=== PATIENT | male | born 1950 | race Caucasian/White ===

== ENCOUNTER 2019-08-26 02:32 | Inpatient (IN) | payer OTHER ==
--- NOTE | 2019-08-26 02:50 | PDOC ---
History of Present Illness - General Chief Complaint: Shortness of Breath Stated Complaint: HIGH BP,SOB Time Seen by Provider: 08/26/19 02:49 - History of Present Illness Initial Comments: HPI: 68yo M with PMH of hypertension and anxiety presenting with shortness of breath. Son and are at the bedside providing collateral history. Patient has been short of breath for the past two weeks. He reports dyspnea on exertion : usually able to walk in the park without difficulty, but lately has felt tired while doing this. About an hour prior to arrival, he layed down and experienced significant shortness of breath. Patient arrived to our ED satting in the 80s on room air and hypertensive. Patient is concerned that he unintentionally took more valsartan than he was supposed to (480mg instead of 320mg). Patient also notes that he took his usual diazepam for his anxiety. Nonsmoker. Denies history of asthma or COPD. No cough or leg swelling. Denies fever or chills. PCP: Dr. Cole ROS: Constitutional: no fever, no chills HEENT: no throat pain, no dysphagia Cardiovascular: no chest pain, no palpitations Respiratory: no cough, +shortness of breath Gastrointestinal: no abdominal pain, no nausea Genitourinary: no dysuria, no hematuria Musculoskeletal: no myalgia, no arthralgia Skin: no rash, no itching Neurologic: no headache, no weakness PE: General: Awake, alert, and fully oriented, anxious Head: No signs of trauma Eyes: EOMI, sclera anicteric ENT: Moist mucus membranes Neck: Normal ROM, supple Lungs: Lungs clear, Normal breath sounds Cardio: Regular rhythm, S1 and S2 present Abdomen: Soft, nontender. No guarding, no rebound, no masses Extremities: Normal range of motion, Distal pulses present SKIN: Warm, Dry, normal turgor Neurologic: Cranial nerves II through XII grossly intact. Normal speech ED Course/MDM: DDX including but not limited to ACS, PE, PNA, CHF, COPD/asthma Labs, EKG, CXR 08/26/19 02:50 EKG: rate 84, QTc 453, NSR Sat 90s at RA 08/26/19 05:15 CBC WBC 5.4 K/mm3 (4.0-10.0) 08/26/19 03:23 RBC 5.34 M/mm3 (4.00-5.60) 08/26/19 03:23 Hgb 16.3 GM/dL (11.7-16.9) 08/26/19 03:23 Hct 48.8 % (35.4-49) 08/26/19 03:23 MCV 91.5 fl (80-96) 08/26/19 03:23 MCH 30.5 pg (25.7-33.7) 08/26/19 03:23 MCHC 33.4 g/dl (32.0-35.9) 08/26/19 03:23 RDW 14.0 % (11.9-15.9) 08/26/19 03:23 Plt Count 166 K/MM3 (134-434) 08/26/19 03:23 MPV 10.4 fl (7.5-11.1) D 08/26/19 03:23 Absolute Neuts (auto) 3.2 K/mm3 (1.5-8.0) 08/26/19 03:23 Neutrophils % 58.9 % (42.8-82.8) 08/26/19 03:23 Lymphocytes % 29.8 % (8-40) D 08/26/19 03:23 Monocytes % 8.6 % (3.8-10.2) 08/26/19 03:23 Eosinophils % 2.1 % (0-4.5) 08/26/19 03:23 Basophils % 0.6 % (0-2.0) 08/26/19 03:23 Nucleated RBC % 0 % (0-0) 08/26/19 03:23 No leukocytosis CMP Sodium 138 mmol/L (136-145) 08/26/19 03:23 Potassium 3.7 mmol/L (3.5-5.1) 08/26/19 03:23 Chloride 105 mmol/L (98-107) 08/26/19 03:23 Carbon Dioxide 26 mmol/L (21-32) 08/26/19 03:23 Anion Gap 8 MMOL/L (8-16) 08/26/19 03:23 BUN 22.4 mg/dL (7-18) H 08/26/19 03:23 Creatinine 1.4 mg/dL (0.55-1.3) H 08/26/19 03:23 Est GFR (CKD-EPI)AfAm 60.25 08/26/19 03:23 Est GFR (CKD-EPI)NonAf 51.99 08/26/19 03:23 Random Glucose 133 mg/dL (74-106) H 08/26/19 03:23 Calcium 8.5 mg/dL (8.5-10.1) 08/26/19 03:23 Total Bilirubin 0.3 mg/dL (0.2-1) 08/26/19 03:23 AST 18 U/L (15-37) 08/26/19 03:23 ALT 22 U/L (13-61) 08/26/19 03:23 Alkaline Phosphatase 196 U/L (45-117) H 08/26/19 03:23 Creatine Kinase 179 U/L (26-308) 08/26/19 03:23 Creatine Kinase Index 1.2 % (0.0-5.0) 08/26/19 03:23 CK-MB (CK-2) 2.2 ng/mL (0.5-3.6) 08/26/19 03:23 Troponin I < 0.02 ng/ml (0.00-0.05) 08/26/19 03:23 B-Natriuretic Peptide 27.2 pg/ml (5-125) 08/26/19 03:23 Total Protein 7.4 g/dl (6.4-8.2) 08/26/19 03:23 Albumin 3.7 g/dl (3.4-5.0) 08/26/19 03:23 Electrolytes unremarkable Cr mildly elevated No transaminitis Normal BNP Tpn undetectable Decision made to obtain chest CTA to rule out PE Chest CTA as reported by imaging money position officer: "EXAM: CHEST CTA HISTORY: Shortness of breath and hypoxia COMPARISON: None. FINDINGS: Negative for pulmonary embolus. There is aneurysmal dilatation of the ascending thoracic aorta measuring up to 4.8 cm. There is no thoracic aortic dissection at this time. Cardiomegaly. Lungs are clear. No pulmonary infiltrates. No pleural effusions. Osseous structures are intact. Note made of some calcification and stranding along the periphery of the left kidney posterior medially. Uncertain etiology. Recommend follow-up." Plan for admission for hypoxia Ling's is leaving. she would like to leave her phone number: Lakeshia 08/26/19 06:[address] Cole's service; expecting a callback from Dr. Colin 08/26/19 07:23 Past History - Past Medical History Allergies/Adverse Reactions: Allergies Allergy/AdvReac Type Severity Reaction Status Date / Time No Known Allergies Allergy Verified 08/26/19 02:47 Home Medications: Ambulatory Orders Amlodipine Besylate 5 mg PO DAILY 08/26/19 Diazepam 10 mg PO DAILY 08/26/19 Valsartan 320 mg PO DAILY 08/26/19 COPD: No HTN: Yes - Surgical History Appendectomy: Yes - Immunization History Immunization Up to Date: Yes - Psycho Social/Smoking Cessation Hx Smoking History: Never smoked Hx Alcohol Use: No Drug/Substance Use Hx: No (past) Substance Use Type: Alcohol *Physical Exam - Vital Signs Last Vital Signs Temp Pulse Resp BP Pulse Ox 90 22 H 172/116 H 84 L 08/26/19 02:44 08/26/19 02:44 08/26/19 02:44 08/26/19 02:44 ED Treatment Course - LABORATORY CBC & Chemistry Diagram: 08/26/19 03:23 08/26/19 03:23 Discharge - Discharge Information Problems reviewed: Yes Clinical Impression/Diagnosis: Hypoxia, Shortness of breath Condition: Guarded - Admission Yes - Follow up/Referral Referrals: Mariajose Cole MD [Primary Care Provider] - - Patient Discharge Instructions - Post Discharge Activity
[2019-08-26 02:55] VITALS: BMI 32.4
--- NOTE | 2019-08-26 03:18 | PDOC ---
Attending Attestation - Resident Resident Name: Lisa Alicea - ED Attending Attestation I have performed the following: I have examined & evaluated the patient, The case was reviewed & discussed with the resident, I agree w/resident's findings & plan - HPI HPI: 08/26/19 05:15 see resident hpi - Physicial Exam PE: 08/26/19 05:15 agree with resident exam - Medical Decision Making 08/26/19 05:15 68-year-old male worsening shortness of breath becoming acutely worse this evening preventing sleep Patient is persistently hypoxic in the emergency department with normal EKG and troponin as well as BNP We will CTA chest to rule out pulmonary embolism and reevaluate
[2019-08-26 03:55] LABS: BASO % 0.6 % (0-2.0); EOS % 2.1 % (0-4.5); HEMATOCRIT 48.8 % (35.4-49); HEMOGLOBIN 16.3 GM/dL (11.7-16.9); LYMPH % 29.8 % (8-40); MCH 30.5 pg (25.7-33.7); MCHC 33.4 g/dl (32.0-35.9); MEAN CELL VOLUME 91.5 fl (80-96); MEAN PLT VOLUME 10.4 fl (7.5-11.1); MONO % 8.6 % (3.8-10.2); NEUT % 58.9 % (42.8-82.8); PLATELET COUNT 166 K/MM3 (134-434); RBC 5.34 M/mm3 (4.00-5.60); WHITE BLOOD COUNT 5.4 K/mm3 (4.0-10.0)
[2019-08-26 04:08] LABS: INR 1.05 (0.83-1.09); PROTHROMBIN TIME (PATIENT) 12.4 SEC (9.7-13.0)
[2019-08-26 04:19] LABS: ALBUMIN 3.7 g/dl (3.4-5.0); BILIRUBIN,TOTAL 0.3 mg/dL (0.2-1); BLOOD UREA NITROGEN 22.4 mg/dL (7-18); CALCIUM 8.5 mg/dL (8.5-10.1); CREATININE 1.4 mg/dL (0.55-1.3); N-TERMINAL BNP 27.2 pg/ml (5-125); POTASSIUM 3.7 mmol/L (3.5-5.1); TOT PROT 7.4 g/dl (6.4-8.2)
--- NOTE | 2019-08-26 07:23 | PDOC ---
*Physical Exam - Vital Signs Last Vital Signs Temp Pulse Resp BP Pulse Ox 92 H 18 151/104 H 92 L 08/26/19 04:04 08/26/19 04:04 08/26/19 04:04 08/26/19 04:04 ED Treatment Course - LABORATORY CBC & Chemistry Diagram: 08/26/19 03:23 08/26/19 03:23 - ADDITIONAL ORDERS Additional order review: Laboratory Results 08/26/19 08/26/19 08/26/19 03:23 03:23 03:23 PT with INR 12.40 INR 1.05 Sodium 138 Potassium 3.7 Chloride 105 Carbon Dioxide 26 Anion Gap 8 BUN 22.4 H Creatinine 1.4 H Est GFR (CKD-EPI)AfAm 60.25 Est GFR (CKD-EPI)NonAf 51.99 Random Glucose 133 H Calcium 8.5 Total Bilirubin 0.3 AST 18 ALT 22 Alkaline Phosphatase 196 H Creatine Kinase 179 Creatine Kinase Index 1.2 CK-MB (CK-2) 2.2 Troponin I < 0.02 B-Natriuretic Peptide 27.2 Total Protein 7.4 Albumin 3.7 08/26/19 03:23 RBC 5.34 MCV 91.5 MCHC 33.4 RDW 14.0 MPV 10.4 D Neutrophils % 58.9 Lymphocytes % 29.8 D Monocytes % 8.6 Eosinophils % 2.1 Basophils % 0.6 Medical Decision Making - Medical Decision Making 08/26/19 13:18 Sign out received by Dr. Alicea. 68M w/no significant cardiac hx or pulm hx p/w shortness of breath, hypoxic on exam. BNP wnl, trop negative, CT PE negative. Admission pending, awaiting callback from Dr. Cole. --- Case discussed with admitting team, patient admitted to telemetry. Repeat troponin ordered. Discharge - Discharge Information Problems reviewed: Yes Clinical Impression/Diagnosis: Hypoxia, Shortness of breath Condition: Guarded - Admission Yes - Follow up/Referral - Patient Discharge Instructions - Post Discharge Activity
--- NOTE | 2019-08-26 10:28 | EKG ---
Test Reason : Blood Pressure : / mmHG Vent. Rate : 084 BPM Atrial Rate : 084 BPM P-R Int : 200 ms QRS Dur : 088 ms QT Int : 384 ms P-R-T Axes : 045 -24 -14 degrees QTc Int : 453 ms NORMAL SINUS RHYTHM NORMAL ECG WHEN COMPARED WITH ECG OF 29-NOV-1999 01:26, NO SIGNIFICANT CHANGE WAS FOUND Confirmed by CARLITO AMADOR MD ([id number]) on 08/26/2019 10:28:06 AM Referred By: Confirmed By:CARLITO AMADOR MD
--- NOTE | 2019-08-26 12:42 | HP ---
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 no recent acute illness or travel History Source: Patient Limitations to Obtaining History: No Limitations - Past Medical History Cardiovascular: Yes: HTN Psych: Yes: Anxiety - Past Surgical History Past Surgical History: Yes: Appendectomy Additional Past Surgical History: partial nephrectomy for benign mass 2017 - Smoking History Smoking history: Never smoked - Alcohol/Substance Use Hx Alcohol Use: No - Social History ADL: Independent History of Recent Travel: No Home Medications - Allergies Allergies/Adverse Reactions: Allergies Allergy/AdvReac Type Severity Reaction Status Date / Time No Known Allergies Allergy Verified 08/26/19 02:47 - Home Medications Home Medications: Ambulatory Orders Amlodipine Besylate 5 mg PO DAILY 08/26/19 Diazepam 10 mg PO DAILY 08/26/19 Valsartan 320 mg PO DAILY 08/26/19 Review of Systems - Review of Systems Constitutional: reports: No Symptoms Eyes: reports: Blurred Vision (occasionally) HENT: reports: No Symptoms Neck: reports: No Symptoms Cardiovascular: reports: No Symptoms Respiratory: reports: Orthopnea, SOB on Exertion. denies: Cough, Wheezing Gastrointestinal: reports: No Symptoms Genitourinary: reports: Urgency Integumentary: reports: No Symptoms Neurological: reports: No Symptoms Endocrine: reports: No Symptoms Hematology/Lymphatic: reports: No Symptoms Psychiatric: reports: No Symptoms Physical Examination Vital Signs: Vital Signs Temperature 97.7 F 08/26/19 12:03 Pulse Rate 70 08/26/19 12:03 Respiratory Rate 20 08/26/19 12:03 Blood Pressure 153/107 H 08/26/19 12:03 O2 Sat by Pulse Oximetry (%) 95 08/26/19 12:03 Constitutional: Yes: Well Nourished, Calm Eyes: Yes: Conjunctiva Clear, EOM Intact HENT: Yes: Normocephalic Neck: Yes: Trachea Midline Cardiovascular: Yes: Regular Rate and Rhythm. No: Murmur Respiratory: Yes: CTA Bilaterally Gastrointestinal: Yes: Normal Bowel Sounds, Soft Musculoskeletal: Yes: WNL Extremities: Yes: WNL Edema: No Peripheral Pulses WNL: Yes Integumentary: Yes: WNL Neurological: Yes: WNL ...Motor Strength: WNL Psychiatric: Yes: WNL Labs: CBC, BMP 08/26/19 03:23 08/26/19 03:23 Laboratory Results - last 24 hr 08/26/19 08/26/19 08/26/19 03:23 03:23 03:23 WBC 5.4 RBC 5.34 Hgb 16.3 Hct 48.8 MCV 91.5 MCH 30.5 MCHC 33.4 RDW 14.0 Plt Count 166 MPV 10.4 D Absolute Neuts (auto) 3.2 Neutrophils % 58.9 Lymphocytes % 29.8 D Monocytes % 8.6 Eosinophils % 2.1 Basophils % 0.6 Nucleated RBC % 0 PT with INR INR Anticoagulation Therapy Puncture Site ABG pH ABG pCO2 at Pt Temp ABG pO2 at Pt Temp ABG HCO3 ABG O2 Sat (Measured) ABG O2 Content ABG Base Excess Morteza Test O2 Delivery Device Oxygen Flow Rate Vent Mode Vent Rate Mechanical Rate Pressure Support Vent Sodium 138 Potassium 3.7 Chloride 105 Carbon Dioxide 26 Anion Gap 8 BUN 22.4 H Creatinine 1.4 H Est GFR (CKD-EPI)AfAm 60.25 Est GFR (CKD-EPI)NonAf 51.99 Random Glucose 133 H Calcium 8.5 Total Bilirubin 0.3 AST 18 ALT 22 Alkaline Phosphatase 196 H Creatine Kinase 179 Creatine Kinase Index 1.2 CK-MB (CK-2) 2.2 Troponin I < 0.02 B-Natriuretic Peptide 27.2 Total Protein 7.4 Albumin 3.7 08/26/19 08/26/19 08/26/19 03:23 10:00 12:33 WBC RBC Hgb Hct MCV MCH MCHC RDW Plt Count MPV Absolute Neuts (auto) Neutrophils % Lymphocytes % Monocytes % Eosinophils % Basophils % Nucleated RBC % PT with INR 12.40 INR 1.05 Anticoagulation Therapy No Result Required. Puncture Site Left radial ABG pH 7.42 ABG pCO2 at Pt Temp 36.7 ABG pO2 at Pt Temp 56.7 L ABG HCO3 23.5 ABG O2 Sat (Measured) 88.1 L ABG O2 Content 21.3 ABG Base Excess 0 Morteza Test Positive O2 Delivery Device No Result Required. Oxygen Flow Rate No Vent Mode No Result Required. Vent Rate No Result Required. Mechanical Rate No Result Required. Pressure Support Vent No Result Required. Sodium Potassium Chloride Carbon Dioxide Anion Gap BUN Creatinine Est GFR (CKD-EPI)AfAm Est GFR (CKD-EPI)NonAf Random Glucose Calcium Total Bilirubin AST ALT Alkaline Phosphatase Creatine Kinase Creatine Kinase Index CK-MB (CK-2) Troponin I < 0.02 B-Natriuretic Peptide Total Protein Albumin Imaging - Results Cat Scan: Report Reviewed (no CT evidence of pulmonary embolism mild ascending TAA 4.8 cm) Problem List - Problems (1) Hypertension Code(s): I10 - ESSENTIAL (PRIMARY) HYPERTENSION (2) Hypoxia Code(s): R09.02 - HYPOXEMIA (3) Shortness of breath Code(s): R06.02 - SHORTNESS OF BREATH Assessment/Plan etiology of hypoxia? long standing noted incidentally? will need PFT check echo requested pulm and cardiac evaluation Bp control
[2019-08-26 12:49] LABS: ARTERIAL BLD GAS O2 SATURATION 88.1 % (95-98); ARTERIAL BLOOD GAS BASE EXCESS 0 meq/l (-2-2); ARTERIAL BLOOD GAS PCO2 36.7 mmHg (35-45); ARTERIAL BLOOD GAS PO2 56.7 mmHg (80-100); ARTERIAL BLOOD GAS pH 7.42 (7.35-7.45)
[2019-08-26] MEDS ORDERED: amLODIPine BESYLATE 5 MG TABLET (FP) ONE (12:53)
[2019-08-26 12:55] LABS: ALLENS TEST POSITIVE
[2019-08-26] MEDS: amLODIPine BESYLATE 10 MG TABLET (FP) PO SCH (13:08)
[2019-08-26] MEDS: LOSARTAN 50MG/HCTZ 12.5MG 1 TAB (FP) PO SCH (13:12)
--- NOTE | 2019-08-26 14:06 | CON.PULM ---
Consult Consult Specialty:: PULM/CCM Referred by:: LILIBETH Reason for Consultation:: Hypoxemia - History of Present Illness Chief Complaint: Shortness of breath History of Present Illness: 68 M, no significant smoking historym left kidney surgery (reason not clear), and HTN. Admitted via the ER due to progressive Shortness of Breath over the past several days. He does not have significant cough, sputum, hemoptysis, etc. 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 No previous PFTs. Patient noted to be hypoxic to 84% on RA on presentation. Improved to 95% with supplemental NC O2. CT scan: No PE / possible subtle interstitial disease posteriorly at the bases - History Source History Provided By: Patient Limitations to Obtaining History: No Limitations - Past Medical History Cardio/Vascular: Yes: HTN Pulmonary: No: Asthma, Bronchitis, Cancer, COPD, O2 Dependent, Pneumonia, Previously Intubated, Pulmonary Embolus, Pulmonary Fibrosis, Sleep Apnea Psych: Yes: Anxiety - Past Surgical History Past Surgical History: Yes: Appendectomy - Alcohol/Substance Use Hx Alcohol Use: No - Smoking History Smoking history: Never smoked - Social History ADL: Independent History of Recent Travel: No Home Medications - Allergies Allergies/Adverse Reactions: Allergies Allergy/AdvReac Type Severity Reaction Status Date / Time No Known Allergies Allergy Verified 08/26/19 02:47 - Home Medications Home Medications: Ambulatory Orders Amlodipine Besylate 5 mg PO DAILY 08/26/19 Diazepam 10 mg PO DAILY 08/26/19 Valsartan 320 mg PO DAILY 08/26/19 Review of Systems - Review of Systems Constitutional: denies: Chills, Fever, Malaise, Night Sweats, Unintentional Wgt. Loss Eyes: reports: No Symptoms HENT: reports: No Symptoms Neck: reports: No Symptoms Cardiovascular: reports: Shortness of Breath. denies: Chest Pain, Edema, Palpitations Respiratory: reports: SOB, SOB on Exertion. denies: Cough, Hemoptysis, Orthopnea, PND, Snoring, Wheezing Gastrointestinal: reports: No Symptoms Genitourinary: reports: No Symptoms Breasts: reports: No Symptoms Reported Musculoskeletal: reports: Other (left axillary pain) Integumentary: reports: No Symptoms Neurological: reports: No Symptoms Endocrine: reports: No Symptoms Hematology/Lymphatic: reports: No Symptoms Psychiatric: reports: No Symptoms Physical Exam Vital Sings: Vital Signs Temperature 97.7 F 08/26/19 12:03 Pulse Rate 70 08/26/19 12:03 Respiratory Rate 20 08/26/19 12:03 Blood Pressure 153/107 H 08/26/19 12:03 O2 Sat by Pulse Oximetry (%) 95 08/26/19 12:03 Constitutional: Yes: No Distress, Anxious Eyes: Yes: Conjunctiva Clear, EOM Intact HENT: Yes: Atraumatic, Normocephalic Neck: Yes: Supple, Trachea Midline Cardiovascular: Yes: Regular Rate and Rhythm Respiratory: Yes: Cough, Diminished, On Nasal O2, Rhonchi. No: Accessory Muscle Use, Rales, SOB, SOB on Exertion, Stridor, Tachypnea ...Inspection: Yes: WNL ...Clubbing: No Gastrointestinal: Yes: Normal Bowel Sounds, Soft Renal/: Yes: WNL Musculoskeletal: Yes: WNL Extremities: Yes: WNL Edema: No Peripheral Pulses WNL: Yes Integumentary: Yes: WNL Neurological: Yes: WNL, Alert, Oriented ...Motor Strength: WNL Psychiatric: Yes: WNL, Alert, Oriented Labs: CBC, BMP 08/26/19 03:23 08/26/19 03:23 ABG Results ABG pH 7.42 (7.35-7.45) 08/26/19 12:33 ABG pCO2 at Pt Temp 36.7 mmHg (35-45) 08/26/19 12:33 ABG pO2 at Pt Temp 56.7 mmHg (80-100) L 08/26/19 12:33 ABG HCO3 23.5 mmol/L (22-27) 08/26/19 12:33 ABG O2 Sat (Measured) 88.1 % (95-98) L 08/26/19 12:33 ABG O2 Content 21.3 % vol 08/26/19 12:33 ABG Base Excess 0 meq/l (-2-2) 08/26/19 12:33 Imaging - Results Chest X-ray: Report Reviewed, Image Reviewed Cat Scan: Report Reviewed, Image Reviewed Problem List - Problems (1) Interstitial lung disease Code(s): J84.9 - INTERSTITIAL PULMONARY DISEASE, UNSPECIFIED (2) Hypertension Code(s): I10 - ESSENTIAL (PRIMARY) HYPERTENSION (3) Hypoxia Code(s): R09.02 - HYPOXEMIA (4) Shortness of breath Code(s): R06.02 - SHORTNESS OF BREATH Assessment/Plan IMP: Possible early ILD due to occupational exposure: possibly a chronic issue PLAN: Supplemental O2 to maintain saturation May require home O2 ECHO Will need outpatient PFTs to look for DLCO and Restriction Continued smoking abstinence discussed Patient is retired for the past 2 years, so no longer potential exposure Cardiology evaluation called. Will follow Thank you. Dr Pelaez
--- NOTE | 2019-08-26 16:40 | CON.CARD ---
Consult Consult Specialty:: cardiology Reason for Consultation:: shortness of breath; HTN - History of Present Illness Chief Complaint: Pt Alert; denies chest pain; + SOB on mild exertion History of Present Illness: 68yo man (b. [place]), with PMH of hypertension, hyperlipidemia, overweight, and anxiety, now presenting with shortness of breath. Son and are at the bedside providing collateral history. Patient has been short of breath for the past two weeks. He reports dyspnea on exertion: usually able to walk in the park without difficulty, but lately has felt tired while doing this. About an hour prior to arrival, he lay down and experienced significant shortness of breath. Patient arrived to our ED O2 saturation in the 80s on room air, and markedly hypertensive. Patient is concerned that he unintentionally took more valsartan than he was supposed to (480mg instead of 320mg). Patient also notes that he took his usual diazepam for his anxiety. Nonsmoker. Rare alcoholic drink. Denies history of asthma or COPD. No cough or leg swelling. Denies fever or chills. 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 Hx surgery "to remove a fatty mass around the kidney" PCP: Dr. Cole - History Source History Provided By: Patient, Family Member (son' wofe), Medical Record Limitations to Obtaining History: No Limitations - Past Medical History Cardio/Vascular: Yes: CHF (diastolic), HTN Pulmonary: No: Asthma, Bronchitis, Cancer, COPD, O2 Dependent, Pneumonia, Previously Intubated, Pulmonary Embolus, Pulmonary Fibrosis, Sleep Apnea Psych: Yes: Anxiety - Past Surgical History Past Surgical History: Yes: Appendectomy - Alcohol/Substance Use Hx Alcohol Use: Yes - Smoking History Smoking history: Never smoked - Social History ADL: Independent History of Recent Travel: No Home Medications - Allergies Allergies/Adverse Reactions: Allergies Allergy/AdvReac Type Severity Reaction Status Date / Time No Known Allergies Allergy Verified 08/26/19 02:47 - Home Medications Home Medications: Ambulatory Orders Diazepam 10 mg PO DAILY 08/26/19 Amlodipine Besylate [Norvasc -] 10 mg PO DAILY #30 tablet 08/27/19 Atorvastatin Ca [Lipitor] 40 mg PO HS #30 tablet 08/27/19 Losartan 50Mg/Hctz 12.5MG [Hyzaar -] 2 tab PO DAILY #60 tablet 08/27/19 Family Medical History Family History: Denies Review of Systems - Review of Systems Constitutional: reports: Weakness Eyes: reports: No Symptoms HENT: reports: No Symptoms Neck: reports: No Symptoms Cardiovascular: reports: Shortness of Breath Respiratory: reports: SOB Gastrointestinal: reports: No Symptoms Genitourinary: reports: No Symptoms Breasts: reports: No Symptoms Reported Musculoskeletal: reports: Muscle Weakness Integumentary: reports: No Symptoms Neurological: reports: Weakness Endocrine: reports: No Symptoms Hematology/Lymphatic: reports: No Symptoms Psychiatric: reports: Anxiety - Risk Factors Known Risk Factors: Yes: Age, Gender, Hypercholesterolemia, Hypertension, Physical Inactivity Vital Signs: Vital Signs Temperature 97.7 F 08/26/19 12:03 Pulse Rate 70 08/26/19 12:03 Respiratory Rate 20 08/26/19 12:03 Blood Pressure 153/107 H 08/26/19 12:03 O2 Sat by Pulse Oximetry (%) 95 08/26/19 12:03 Constitutional: Yes: Anxious Eyes: Yes: WNL HENT: Yes: WNL Neck: Yes: WNL Respiratory: Yes: Diminished, SOB, Tachypnea Gastrointestinal: Yes: Soft. No: Tenderness Renal/: No: Anuria Cardiovascular: Yes: Regular Rate and Rhythm JVD: No Carotid Bruit: No Heart Sounds: Yes: S1, S2, S4 Murmur: Yes: Systolic Murmur, Grade 1 Musculoskeletal: Yes: Muscle Weakness Extremities: Yes: Cool Edema: No Peripheral Pulses WNL: Yes Integumentary: Yes: WNL Neurological: Yes: Alert Psychiatric: Yes: Alert, Oriented, Other - Other Data Labs, Other Data: CBC, BMP 08/26/19 03:23 08/26/19 03:23 INR, PTT INR 1.05 (0.83-1.09) 08/26/19 03:23 Troponin, BNP 08/26/19 08/26/19 08/26/19 03:23 03:23 10:00 Troponin I < 0.02 < 0.02 B-Natriuretic Peptide 27.2 Troponin, BNP 08/26/19 08/26/19 08/26/19 03:23 03:23 10:00 Troponin I < 0.02 < 0.02 B-Natriuretic Peptide 27.2 Echo: Pending Imaging - Results Chest X-ray: Image Reviewed EKG: Image Reviewed Problem List - Problems (1) Renal insufficiency Assessment/Plan: On diuretic and ARB; f/u BUN/Cr, electrolytes F.u hx of surgery "to remove a fatty mass around the kidney" Code(s): N28.9 - DISORDER OF KIDNEY AND URETER, UNSPECIFIED (2) Hypertension Assessment/Plan: on losartan, HCTZ, and amlodipine. F/u BUN/Cr, electrolytes. 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 F/u with quarry supervisor. F/u ECHO for LVEF, wall motion, valve status. Code(s): R09.02 - HYPOXEMIA (4) Thoracic ascending aortic aneurysm Assessment/Plan: Reported as mild (4.8 cm) on CTA this admission. Control of BP is essential; if no contraindications (e.g. bronchospastic disease /asthma), would start beta jaden for decrease in shear force. Code(s): I71.2 - THORACIC AORTIC ANEURYSM, WITHOUT RUPTURE (5) Hyperlipidemia Assessment/Plan: lipid profile; statin if necessary. Code(s): E78.5 - HYPERLIPIDEMIA, UNSPECIFIED (6) Diastolic CHF Code(s): I50.30 - UNSPECIFIED DIASTOLIC (CONGESTIVE) HEART FAILURE
[2019-08-26] MEDS: diazePAM 5 MG TABLET PO PRN (18:14)
[2019-08-26] MEDS ORDERED: HYDROCHLOROTHIAZIDE 25 MG TABLET (FP) PO ONE (18:22)
[2019-08-26 20:31] LABS: CHOLESTEROL 235 mg/dL (50-200); HDL CHOLESTEROL 44 mg/dL (40-60); LDL CHOLESTEROL (ONLY SJRH) 163 mg/dL (5-100); TRIGLYCERIDES 152 mg/dL (0-150)
[2019-08-27] MEDS: diazePAM 5 MG TABLET PO PRN ×2 (00:30→22:49)
[2019-08-27 07:39] LABS: ALBUMIN 3.7 g/dl (3.4-5.0); BILIRUBIN,TOTAL 0.9 mg/dL (0.2-1); BLOOD UREA NITROGEN 21.2 mg/dL (7-18); CALCIUM 8.8 mg/dL (8.5-10.1); CREATININE 1.6 mg/dL (0.55-1.3); POTASSIUM 4.4 mmol/L (3.5-5.1); TOT PROT 7.8 g/dl (6.4-8.2)
--- NOTE | 2019-08-27 08:57 | PN ---
Progress Note (short form) - Note Progress Note: no complinats still low o2 sats CBC, BMP 08/26/19 03:23 08/27/19 06:40 Vital Signs Period Temp Pulse Resp BP Sys/Leiva Pulse Ox Last 24 Hr 97.6 F-98.6 F 70-107 18-20 118-154/80-108 92-95 s1s2 rrr lungs cta, faint rales at right base abd soft nt no edema imp TAA will need outpt monitoring, BP control HTN ILD? will need outpt PFTs plan BP is better awaiting echo pre and post o2 for home o2 evaluation dc planning consults greatly appreciated Problem List - Problems (1) Hypertension Code(s): I10 - ESSENTIAL (PRIMARY) HYPERTENSION (2) Hypoxia Code(s): R09.02 - HYPOXEMIA (3) Shortness of breath Code(s): R06.02 - SHORTNESS OF BREATH
--- NOTE | 2019-08-27 10:16 | PN ---
Progress Note, Physician History of Present Illness: pulmonary alert,feeling better,less sob - Current Medication List Current Medications: Active Medications Amlodipine Besylate (Norvasc -) 10 mg PO DAILY [facility] Last Admin: 08/26/19 13:08 Dose: 10 mg Atorvastatin Calcium (Lipitor -) 40 mg PO HS ROSSANA Diazepam (Valium -) 5 mg PO BID PRN PRN Reason: ANXIETY Last Admin: 08/27/19 00:30 Dose: 5 mg HCTZ/Losartan Potassium (Hyzaar -) 2 tab PO DAILY ROSSANA Last Admin: 08/26/19 13:12 Dose: 2 tab - Objective Vital Signs: Vital Signs Temperature 98.0 F 08/27/19 09:03 Pulse Rate 79 08/27/19 09:03 Respiratory Rate 20 08/27/19 09:03 Blood Pressure 119/89 08/27/19 09:03 O2 Sat by Pulse Oximetry (%) 94 L 08/26/19 21:00 Constitutional: Yes: Well Nourished, Calm Eyes: Yes: WNL HENT: Yes: WNL Neck: Yes: WNL Cardiovascular: Yes: Regular Rate and Rhythm, S1, S2 Respiratory: Yes: Rhonchi (few rhonchi) Gastrointestinal: Yes: Normal Bowel Sounds, Soft Extremities: Yes: WNL Edema: No Labs: CBC, BMP 08/26/19 03:23 08/27/19 06:40 INR, PTT INR 1.05 (0.83-1.09) 08/26/19 03:23 Assessment/Plan Problem List - Problems (1) Interstitial lung disease Code(s): J84.9 - INTERSTITIAL PULMONARY DISEASE, UNSPECIFIED (2) Hypertension Code(s): I10 - ESSENTIAL (PRIMARY) HYPERTENSION (3) Hypoxia Code(s): R09.02 - HYPOXEMIA (4) Shortness of breath Code(s): R06.02 - SHORTNESS OF BREATH Assessment/Plan IMP: Possible early ILD due to occupational exposure: possibly a chronic issue PLAN: Supplemental O2 to maintain saturation ECHO outpatient PFTs to look for DLCO and Restriction Continued smoking abstinence discussed Patient is retired for the past 2 years, so no longer potential exposure ambulatory o2 sat prior to discharge DR QUEZADA
[2019-08-27] MEDS: amLODIPine BESYLATE 10 MG TABLET (FP) PO SCH (10:25)
[2019-08-27] MEDS: LOSARTAN 50MG/HCTZ 12.5MG 1 TAB (FP) PO SCH (10:25)
[2019-08-27] MEDS: ATORVASTATIN CA 40 MG TABLET (FP) PO SCH ×2 (10:27→22:48)
--- NOTE | 2019-08-27 13:42 | EKG ---
Test Reason : Blood Pressure : / mmHG Vent. Rate : 089 BPM Atrial Rate : 089 BPM P-R Int : 190 ms QRS Dur : 102 ms QT Int : 386 ms P-R-T Axes : 036 -33 -04 degrees QTc Int : 469 ms NORMAL SINUS RHYTHM LEFT AXIS DEVIATION MINIMAL VOLTAGE CRITERIA FOR LVH, MAY BE NORMAL VARIANT INFERIOR INFARCT , AGE UNDETERMINED ABNORMAL ECG WHEN COMPARED WITH ECG OF 26-AUG-2019 03:51, NO SIGNIFICANT CHANGE WAS FOUND Confirmed by MAKENNA MAHONEY MD ([id number]) on 08/27/2019 1:42:02 PM Referred By: VERENA SERRATO DR Confirmed By:MAKENNA MAHONEY MD
--- NOTE | 2019-08-27 14:20 | ECHO ---
Name: DEV CUMMINS Exam:Adult Echocardiogram Study Date: 08/27/2019 11:08 AM Age: 68 yrs Height: 67 in Weight: 207 lb BSA: 2.1 m2 MMode/2D Measurements & Calculations IVSd: 1.3 cm Ao root diam: 3.9 cm LVIDd: 3.0 cm LA dimension: 3.4 cm LVIDs: 2.2 cm ACS: 1.5 cm LVPWd: 0.93 cm EDV(Teich): 34.3 ml LVOT diam: 1.7 cm ESV(Teich): 15.9 ml Doppler Measurements & Calculations Ao V2 max: 138.5 cm/sec AI max hany: 211.7 cm/sec Ao max P.7 mmHg AI max P.9 mmHg Ao V2 mean: 109.3 cm/sec Ao mean P.2 mmHg AI dec slope: 125.8 cm/sec2 Ao V2 VTI: 22.7 cm AI P1/2t: 493.0 msec Procedure The study was technically difficult with many images being suboptimal in quality. Left Ventricle Although wall motion is not well seen, overall LV systolic function appears grossly normal. Regional wall motion abnormalities cannot be excluded due to limited visualization. Right Ventricle The right ventricle is not well visualized, but appears mild to moderately dilated in some views. The right ventricular systolic function is grossly normal. Atria Normal left and right atrial size and function. Mitral Valve The mitral valve is grossly normal. There is no mitral valve stenosis. There is trace mitral regurgit ation. Tricuspid Valve The tricuspid valve is normal in structure and function. No tricuspid regurgitation. Aortic Valve There is moderate aortic sclerosis.;. No hemodynamically significant valvular aortic stenosis. Mild a ortic regurgitation. Pulmonic Valve The pulmonic valve is not well seen, but is grossly normal. There is no pulmonic valvular stenosis. M ild pulmonic valvular regurgitation. Great Vessels Borderline aortic root dilatation. Pericardium/Pleura There is no pericardial effusion. Interpretation Summary The study was technically difficult with many images being suboptimal in quality. Regional wall motion abnormalities cannot be excluded due to limited visualization. Although wall motion is not well seen, overall LV systolic function appears grossly normal. The right ventricle is not well visualized, but appears mild to moderately dilated in some views. The right ventricular systolic function is grossly normal. There is moderate aortic sclerosis.; Mild aortic regurgitation. Borderline aortic root dilatation. There is no pericardial effusion. MD Le *Bulmaro 08/27/2019 02:20 PM
--- NOTE | 2019-08-27 15:26 | DS ---
Physical Examination Vital Signs: Vital Signs Period Temp Pulse Resp BP Sys/Leiva Pulse Ox Last 24 Hr 97.3 F-98.2 F 70-100 20-20 125-152/82-96 86-93 Constitutional: Yes: Calm, Thin Eyes: Yes: Conjunctiva Clear, EOM Intact HENT: Yes: Normocephalic Neck: Yes: Trachea Midline Cardiovascular: Yes: Regular Rate and Rhythm Respiratory: Yes: CTA Bilaterally Gastrointestinal: Yes: Normal Bowel Sounds, Soft Edema: No Peripheral Pulses WNL: No ...Motor Strength: WNL Psychiatric: Yes: WNL Labs: CBC, BMP 08/26/19 03:23 08/28/19 06:17 Discharge Summary Problems reviewed: Yes Reason For Visit: SOB,HYPOXIA Current Active Problems Diastolic CHF (Acute) Hyperlipidemia (Acute) Hypertension (Acute) Hypoxia (Acute) Interstitial lung disease (Acute) Renal insufficiency (Acute) Shortness of breath (Acute) Thoracic ascending aortic aneurysm (Acute) Hospital Course: admitted for uncontrolled htn and shortness of breath was found to be hypoxic ct angio was negative for pulmonary embolism, upon pulmonary reviwe did show some pleural disease and possible ILD echo did not show shunting or pulm HTN low o2 sats in low 90s on 4 L o2 bp stabilized with medication changes suspect chronic longer standing issue, patient is asymptomatic and ambulatory in the hospital discussed with cardiology and pulmonary extensiveley given echo findnig bubble study is not indicated will need close outpt follow up for PFT DLCO and high resolution chest CT will also be reassessed by cardiology for possible MUGA discussed with patient and at length he will follow up in the office with us Condition: Fair - Instructions Referrals: Mariajose Cole MD [Primary Care Provider] - - Home Medications Comprehensive Discharge Medication List: Ambulatory Orders Diazepam 10 mg PO DAILY 08/26/19 Amlodipine Besylate [Norvasc -] 10 mg PO DAILY #30 tablet 08/27/19 Atorvastatin Ca [Lipitor] 40 mg PO HS #30 tablet 08/27/19 Losartan 50Mg/Hctz 12.5MG [Hyzaar -] 2 tab PO DAILY #60 tablet 08/27/19 Prescription Drug Monitoring Program (I-STOP) results: I-STOP not reviewed (no indicated)
--- NOTE | 2019-08-27 20:20 | PN ---
Progress Note, Physician Chief Complaint: Pt A&Ox3; denies chest pain; + dyspnea on mild exertion. History of Present Illness: 68yo man (b. [place]), with PMH of hypertension, hyperlipidemia, overweight, and anxiety, now presenting with shortness of breath. Son and are at the bedside providing collateral history. Patient has been short of breath for the past two weeks. He reports dyspnea on exertion: usually able to walk in the park without difficulty, but lately has felt tired while doing this. About an hour prior to arrival, he lay down and experienced significant shortness of breath. Patient arrived to our ED O2 saturation in the 80s on room air, and markedly hypertensive. Patient is concerned that he unintentionally took more valsartan than he was supposed to (480mg instead of 320mg). Patient also notes that he took his usual diazepam for his anxiety. Nonsmoker. Rare alcoholic drink. Denies history of asthma or COPD. No cough or leg swelling. Denies fever or chills. 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 Hx surgery "to remove a fatty mass around the kidney" PCP: Dr. Cole - Current Medication List Current Medications: Active Medications Amlodipine Besylate (Norvasc -) 10 mg PO DAILY [facility] Last Admin: 08/27/19 10:25 Dose: 10 mg Atorvastatin Calcium (Lipitor -) 40 mg PO HS [facility] Last Admin: 08/27/19 10:27 Dose: 40 mg Diazepam (Valium -) 5 mg PO BID PRN PRN Reason: ANXIETY Last Admin: 08/27/19 00:30 Dose: 5 mg HCTZ/Losartan Potassium (Hyzaar -) 2 tab PO DAILY [facility] Last Admin: 08/27/19 10:25 Dose: 2 tab - Objective Vital Signs: Vital Signs Temperature 97.3 F L 08/27/19 18:00 Pulse Rate 95 H 08/27/19 18:00 Respiratory Rate 20 08/27/19 18:00 Blood Pressure 125/96 08/27/19 18:00 O2 Sat by Pulse Oximetry (%) 90 L 08/27/19 12:41 Constitutional: Yes: Calm Eyes: Yes: WNL HENT: Yes: WNL Neck: Yes: WNL Cardiovascular: Yes: S1, S2 Respiratory: Yes: Diminished, On Nasal O2 Gastrointestinal: Yes: Soft ...Rectal Exam: Yes: Deferred Genitourinary: No: Anuria Breast(s): Yes: WNL Musculoskeletal: Yes: Muscle Weakness Extremities: Yes: Cool Edema: No Peripheral Pulses WNL: Yes Integumentary: Yes: WNL Neurological: Yes: Alert, Oriented, Weakness Psychiatric: Yes: WNL Labs: CBC, BMP 08/26/19 03:23 08/27/19 06:40 INR, PTT INR 1.05 (0.83-1.09) 08/26/19 03:23 Abnormal Lab Results 08/27/19 06:40 Sodium 134 L BUN 21.2 H Creatinine 1.6 H Random Glucose 115 H AST 14 L Alkaline Phosphatase 131 H - ....Imaging Chest X-ray: Image Reviewed Cat Scan: Image Reviewed Ultrasound: Pending (ECHO) EKG: Image Reviewed (NSR: LAD; ?old IWMI; LVH) Problem List - Problems (1) Renal insufficiency Assessment/Plan: On diuretic and ARB; f/u BUN/Cr, electrolytes F.u hx of surgery "to remove a fatty mass around the kidney" Code(s): N28.9 - DISORDER OF KIDNEY AND URETER, UNSPECIFIED (2) Hypertension Assessment/Plan: on losartan, HCTZ, and amlodipine. Extra dose of HCTZ given yesterday for elevated BP; Cr has increased (would therefore not increase daily dose of HCTZ). Avoid excessive dehydration; consider additional agent, e.g. hydralazine. Beta jaden might also be useful (mildly dilated ascending aorta) if cleared by marriage therapist. Addendum: ECHO: technically difficult/limited study: grossly normal LVEF, normal atrial sizes; LVH; ? mild-moderately enlarged RV, with normal RVEF; mild AR. Code(s): I10 - ESSENTIAL (PRIMARY) HYPERTENSION (3) Hypoxia Assessment/Plan: Hixtory pt gives changed during interview. Initially said he had been SOB on exertion for only a few days, but later said it had been going on for weeks or even months, leading to him markedly curtailing his formerly physically active daily routine. 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 O2 saturation paradoxically decreases with addition of O2. Addendum: ECHO: normal LVEF; normal atrial sizes; RV "not well visualized, but? mild- moderately enlarged RV, with grossly normal RVEF (assessment of RVSP could not be mad); LVH; mild AR (limited study). Although VARSHA would be useful in ruling out cardiac shunts (e.g. ASD) and better evaluating RV/pulmonary pressure, cardiac MR or CT would be superior in search for anomalous pulmonary vein connections, as well as in further evaluating ascending aortic aneurysm. If pt is stable, this would be arranged as an outpatient. Code(s): R09.02 - HYPOXEMIA (4) Thoracic ascending aortic aneurysm Assessment/Plan: Reported as mild auerysmal dilatation(4.8 cm) without dissection on CTA this admission. Control of BP is essential; if no contraindications (e.g. bronchospastic disease /asthma), would start beta jaden for decrease in shear force. Code(s): I71.2 - THORACIC AORTIC ANEURYSM, WITHOUT RUPTURE (5) Hyperlipidemia Assessment/Plan: lipid profile: markedly elevated LDL. Started atorvastatin 40 mg daily. Diet modification, weight loss, and exercise will also be beneficial. Code(s): E78.5 - HYPERLIPIDEMIA, UNSPECIFIED (6) Diastolic CHF Code(s): I50.30 - UNSPECIFIED DIASTOLIC (CONGESTIVE) HEART FAILURE
[2019-08-28 07:42] LABS: ALBUMIN 3.7 g/dl (3.4-5.0); BILIRUBIN,TOTAL 0.8 mg/dL (0.2-1); BLOOD UREA NITROGEN 26.5 mg/dL (7-18); CALCIUM 9.1 mg/dL (8.5-10.1); CREATININE 1.5 mg/dL (0.55-1.3); POTASSIUM 3.9 mmol/L (3.5-5.1); TOT PROT 7.5 g/dl (6.4-8.2)
--- NOTE | 2019-08-28 10:13 | PN ---
Progress Note (short form) - Note Progress Note: please see discharge summary Problem List - Problems (1) Hypertension Code(s): I10 - ESSENTIAL (PRIMARY) HYPERTENSION (2) Hypoxia Code(s): R09.02 - HYPOXEMIA
[2019-08-28] MEDS: LOSARTAN 50MG/HCTZ 12.5MG 1 TAB (FP) PO SCH (10:27)
[2019-08-28] MEDS: amLODIPine BESYLATE 10 MG TABLET (FP) PO SCH (10:27)
[2019-08-28 10:49] VITALS: BP 116/88; PULSE 88; TEMP 98
--- NOTE | 2019-08-28 11:23 | PN ---
Progress Note (short form) - Note Progress Note: Coverage for Dr. Alvarado Mayberry Chief Complaint: Events noted, notes reviewed, dyspnea improved, denies any chest pain History of Present Illness: Seen and examined on telemetry. Events noted, notes reviewed, dyspnea improved, denies any chest pain - Current Medication List Current Medications Amlodipine Besylate (Norvasc -) 10 mg PO DAILY [facility] Last Admin: 08/28/19 10:27 Dose: 10 mg Atorvastatin Calcium (Lipitor -) 40 mg PO HS [facility] Last Admin: 08/27/19 22:48 Dose: 40 mg Diazepam (Valium -) 5 mg PO BID PRN PRN Reason: ANXIETY Last Admin: 08/27/19 22:49 Dose: 5 mg HCTZ/Losartan Potassium (Hyzaar -) 2 tab PO DAILY [facility] Last Admin: 08/28/19 10:27 Dose: 2 tab Review of Systems - Review of Systems Constitutional: no symptoms reported Respiratory: denies Cough or Sputum Production Cardiovascular: as noted above Gastrointestinal: denies Nausea, Vomiting, Diarrhea, Constipation or Abdominal Pain Genitourinary: no symptoms reported Musculoskeletal: no symptoms reported Endocrine: no symptoms reported - Objective Vital Signs: Last Vital Signs Temp Pulse Resp BP Pulse Ox 98 F 88 20 116/88 90 L 08/28/19 10:00 08/28/19 10:00 08/28/19 10:00 08/28/19 10:00 08/28/19 09:00 Intake & Output 08/25/19 08/26/19 08/27/19 08/28/19 23:59 23:59 23:59 23:59 Intake Total 290 Balance 290 Weight 207 lb Neck: Supple Negative JVD No Bruit Cardiovascular: S1 S2 Regular Rate and Rhythm Respiratory: Diminished Breath Sounds at the Bases Bilaterally Gastrointestinal: Soft Benign Normal Bowel Sounds Extremities: No Edema Labs: CBC, BMP 08/26/19 03:23 08/28/19 06:17 Hepatic Panel Total Bilirubin 0.8 mg/dL (0.2-1) 08/28/19 06:17 AST 14 U/L (15-37) L 08/28/19 06:17 ALT 18 U/L (13-61) 08/28/19 06:17 Alkaline Phosphatase 129 U/L (45-117) H 08/28/19 06:17 Albumin 3.7 g/dl (3.4-5.0) 08/28/19 06:17 ABG Results ABG pH 7.42 (7.35-7.45) 08/26/19 12:33 ABG pCO2 at Pt Temp 36.7 mmHg (35-45) 08/26/19 12:33 ABG pO2 at Pt Temp 56.7 mmHg (80-100) L 08/26/19 12:33 ABG HCO3 23.5 mmol/L (22-27) 08/26/19 12:33 ABG O2 Sat (Measured) 88.1 % (95-98) L 08/26/19 12:33 ABG O2 Content 21.3 % vol 08/26/19 12:33 ABG Base Excess 0 meq/l (-2-2) 08/26/19 12:33 Assessment/Plan ASSESSMENT: 1. Diastolic LV dysfunction with clinical class I-II NYHA classification LV failure, clinically resolved 2. 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 Hypertensive cardiovascular disease 4. Hypercholesterolemia 5. Thoracic aortic aneurysm 6. Probable COPD/interstitial lung disease, further evaluation as outpatient 7. CKD, acute exacerbation PLAN: 1. Continue Norvasc 2. Continue Hyzaar 3. Continue Lipitior 4. Add ASA unless contraindicated 5. Additional cardiovascular evaluation as outpatient with Dr. Alvarado Mayberry, D/ C as per the primary team Franck Harrison MD
== END 2019-08-28 11:59 | disposition home or self-care (01) | DRG 197 ==
LOC: JER 02:32 → JERBED 07:25 → J4W 17:41
PROVIDERS: ADMIT Internal Medicine; ATTEND Internal Medicine
DX: J84.9 Interstitial pulmonary disease, unspecified (principal); I50.30 Unspecified diastolic (congestive) heart failure; I13.0 Hypertensive heart and chronic kidney disease with heart failure and stage 1 through stage 4 chronic kidney disease, or unspecified chronic kidney disease; R06.02 Shortness of breath; R09.02 Hypoxemia; I71.2 Thoracic aortic aneurysm, without rupture; E78.5 Hyperlipidemia, unspecified; I25.119 Atherosclerotic heart disease of native coronary artery with unspecified angina pectoris; N18.9 Chronic kidney disease, unspecified
CPT/HCPCS: 36415; 36600; 71045-TC-FY; 71275-TC; 80053; 80061; 82550; 82553; 82803; 83036; 83721; 83880; 84443; 84484; 85025; 85610; 93005; 93010; 93306-TC; 94010; 94761; 99284-25; Q9967

== ENCOUNTER 2019-09-06 13:44 | Emergency (ER) | payer OTHER ==
--- NOTE | 2019-09-06 13:53 | PDOC ---
Rapid Medical Evaluation Medical Evaluation: Allergies Allergy/AdvReac Type Severity Reaction Status Date / Time No Known Allergies Allergy Verified 08/26/19 02:47 I have performed a brief in-person evaluation of this patient. The patient presents with a chief complaint of: patient was getting PFT done today and respiratory therapist sent patient to ER as patient O2 sat 85% and less at rest at patient's baseline oxygen (4L); RT increased to 6L and still O2 sat still <90%; when patient was to start PFT, patient started to feel lightheaded and brought patient to ED Currently patient mentions feeling a bit lightheaded Endorses chronic L axillary/L arm pain for months Of note, patient is on oxygen for possible ILD (was recently discharged from hospital); had recent CTA chest negative for PE but shows 4.8 cm ascending thoracic aortic aneurysm Pertinent physical exam findings: In no resp distress O2 sat at 97% on 4L of oxygen (at his baseline) lungs CTA B/L no leg swelling I have ordered the following: Labs, EKG, CXR The patient will proceed to the ED for further evaluation. 09/06/19 13:52
[2019-09-06 13:55] VITALS: BP 126/88; PULSE 76; TEMP 97.9; BMI 33.5
--- NOTE | 2019-09-06 15:01 | PDOC ---
History of Present Illness - General Chief Complaint: Lightheaded Stated Complaint: SOB Time Seen by Provider: 09/06/19 13:52 History Source: Patient, Significant Other - History of Present Illness Initial Comments: 09/06/19 17:18 68M w/hx CAD, diastolic dysfunction, HTN, HLD with recent inpatient admission for hypoxia p/w hypoxia noted during evaluation for pulmonary function testing today. He reports being scheduled for PFTs by Dr. Marie after his inpatient admission. He reports being on 4-6L home O2 since discharge, but that he did not use his home O2 last night or this morning. He also reports feeling anxious upon presenting for PFTs. He denies any chest pain, sob, N/V, fevers, chills, prior smoking history. Past History - Past Medical History Allergies/Adverse Reactions: Allergies Allergy/AdvReac Type Severity Reaction Status Date / Time No Known Allergies Allergy Verified 09/06/19 13:55 Home Medications: Ambulatory Orders Diazepam 10 mg PO DAILY 08/26/19 Amlodipine Besylate [Norvasc -] 10 mg PO DAILY #30 tablet 08/27/19 Atorvastatin Ca [Lipitor] 40 mg PO HS #30 tablet 08/27/19 Losartan 50Mg/Hctz 12.5MG [Hyzaar -] 2 tab PO DAILY #60 tablet 08/27/19 COPD: No HTN: Yes Hypercholesterolemia: Yes Other medical history: EARLY INTERSTITIAL LUNG DISEASE, ON 4L O2 AT HOME - Surgical History Appendectomy: Yes - Immunization History Immunization Up to Date: Yes - Psycho Social/Smoking Cessation Hx Smoking History: Never smoked Hx Alcohol Use: No Drug/Substance Use Hx: No Substance Use Type: Alcohol Review of Systems - Review of Systems Able to Perform ROS?: Yes Comments:: 09/07/19 01:53 ROS: GENERAL/CONSTITUTIONAL: No fever or chills. No weakness. HEAD, EYES, EARS, NOSE AND THROAT: No change in vision. No ear pain or discharge. No sore throat. CARDIOVASCULAR: No chest pain or shortness of breath RESPIRATORY: No cough, wheezing, or hemoptysis. GASTROINTESTINAL: No nausea, vomiting, diarrhea or constipation. GENITOURINARY: No dysuria, frequency, or change in urination. MUSCULOSKELETAL: No joint or muscle swelling or pain. No neck or back pain. SKIN: No rash NEUROLOGIC: No headache, vertigo, loss of consciousness, or change in strength/ sensation. ENDOCRINE: No increased thirst. No abnormal weight change HEMATOLOGIC/LYMPHATIC: No anemia, easy bleeding, or history of blood clots. ALLERGIC/IMMUNOLOGIC: No hives or skin allergy. *Physical Exam - Vital Signs Last Vital Signs Temp Pulse Resp BP Pulse Ox 97.9 F 76 20 126/88 96 09/06/19 13:50 09/06/19 13:50 09/06/19 13:50 09/06/19 13:50 09/06/19 13:50 - Physical Exam 09/07/19 01:53 PE: GENERAL: Awake, alert, and fully oriented, in no acute distress HEAD: No signs of trauma, normocephalic, atraumatic EYES: PERRLA, EOMI, sclera anicteric, conjunctiva clear ENT: Auricles normal inspection, hearing grossly normal, nares patent, oropharynx clear without exudates. Moist mucosa NECK: Normal ROM, supple, no lymphadenopathy, JVD, or masses LUNGS: No distress, speaks full sentences, clear to auscultation bilaterally HEART: Regular rate and rhythm, normal S1 and S2, no murmurs, rubs or gallops, peripheral pulses normal and equal bilaterally. ABDOMEN: Soft, nontender, normoactive bowel sounds. No guarding, no rebound. No masses EXTREMITIES : Normal inspection, Normal range of motion, no edema. No clubbing or cyanosis NEUROLOGICAL: Cranial nerves II through XII grossly intact. Normal speech, normal gait, no focal sensorimotor deficits SKIN: Warm, Dry, normal turgor, no rashes or lesions noted ED Treatment Course - LABORATORY CBC & Chemistry Diagram: 09/06/19 14:38 09/06/19 14:38 Medical Decision Making - Medical Decision Making 68M w/recent inpatient admission for hypoxia discharged on home O2 p/w hypoxia before PFTs after being off home O2 night prior, with no fevers, chills, cough, lungs CTAB on exam. Differential includes infection, effect of being off of home O2, anxiety worsening O2%. Plan: CBC CMP BNP VBG Cardiac profile EKG CXR Ambulatory O2% Pulm consult Dispo: Pending reassessment 09/06/19 17:30 ambulatory O2% w/8L O2 - 92% --- Case discussed with Dr. Mora. Plan for discharge w/close pulm follow up. Discharge - Discharge Information Problems reviewed: Yes Clinical Impression/Diagnosis: Hypoxia Condition: Stable Disposition: HOME - Admission No - Follow up/Referral Referrals: Mariajose Cole MD [Primary Care Provider] - Dale Pelaez MD [Staff Physician] - - Patient Discharge Instructions Patient Printed Discharge Instructions: DI for Oxygen Therapy -- Adult Additional Instructions: You were seen in the ER after your oxygen level was low while preparing for the pulmonary testing. Your blood work was normal. Your oxygen level improved with your home oxygen level. Please be sure to follow up with your marketing technology specialist ( Dr. Marie) as soon as possible. Please return to the ER if you develop weakness, trouble breathing, chest pain, fevers. - Post Discharge Activity
[2019-09-06 15:12] LABS: BASO % 0.4 % (0-2.0); EOS % 1.5 % (0-4.5); HEMATOCRIT 49.3 % (35.4-49); HEMOGLOBIN 16.6 GM/dL (11.7-16.9); LYMPH % 19.8 % (8-40); MCH 30.7 pg (25.7-33.7); MCHC 33.7 g/dl (32.0-35.9); MEAN CELL VOLUME 90.9 fl (80-96); MEAN PLT VOLUME 10.1 fl (7.5-11.1); MONO % 9.3 % (3.8-10.2); PLATELET COUNT 187 K/MM3 (134-434); RBC 5.42 M/mm3 (4.00-5.60); RDW 13.6 % (11.9-15.9); WHITE BLOOD COUNT 6.4 K/mm3 (4.0-10.0)
--- NOTE | 2019-09-06 15:26 | PDOC ---
Documentation entered by Surekha Wilhelm SCRIBE, acting as scribe for Dior Kaur MD. Dior Kaur MD: This documentation has been prepared by the Choco cuevas Brenda, SCRIBE, under my direction and personally reviewed by me in its entirety. I confirm that the documentation accurately reflects all work, treatment, procedures, and medical decision making performed by me. Attending Attestation - Resident Resident Name: PatiBala - ED Attending Attestation I have performed the following: I have examined & evaluated the patient, The case was reviewed & discussed with the resident, I agree w/resident's findings & plan, Exceptions are as noted - HPI HPI: 09/06/19 15:14 Mr. Claire is a 68-year-old male with a history of hypertension who was admitted approximately 2 weeks ago for uncontrolled hypertension and shortness of breath. CTA performed and was negative for pulmonary embolism but did show possible idiopathic lung disease Pt discharged to home on O2 however per , he was not using it He was ambulatory at home with no difficulty Was seen today for PFT testing and while in pulmonary, pt noted to be hypoxic and was sent to the ER No chest pain No palpitations - Physicial Exam PE: 09/06/19 15:14 GENERAL: The patient is in no acute distress, resting comfortably, O2 saturation 94 to 95% on room air ENT: Ears normal, nares patent, oropharynx clear without exudates. Moist mucous membranes. NECK: Normal range of motion, supple LUNGS: Breath sounds equal, clear to auscultation bilaterally. No wheezes, and no crackles. HEART:Regular rate and rhythm, normal S1 and S2 without murmur, rub or gallop. ABDOMEN: Soft, nontender, normoactive bowel sounds. EXTREMITIES: Normal range of motion, no edema. NEUROLOGICAL: Cranial nerves II through XII grossly intact. Normal speech. No focal neurological deficits. SKIN: Warm, Dry, normal turgor, no rashes or lesions noted. - Medical Decision Making 09/06/19 15:22 68 yo M presenting with shortness of breath/hypoxia while in pulmonary S/p recent work up for PE -> negative Laboratory Tests 09/06/19 14:38 WBC 6.4 Hgb 16.6 Hct 49.3 H Plt Count 187 EKG: Twelve-lead EKG was performed and reviewed by me. There is normal sinus rhythm with a normal rate of 70 bpm. The axis is normal. The intervals are normal - pr: 198ms, QRS:96ms, QTc:. There are no ST or T wave abnormalities. Impression: Normal twelve-lead EKG Laboratory Tests 09/06/19 09/06/19 14:38 14:38 BUN 28.7 H Creatinine 1.7 H Creatine Kinase 203 Creatine Kinase Index 0.5 CK-MB (CK-2) 1.2 Troponin I < 0.02 09/06/19 17:30 ambulatory O2% w/8L O2 - 92% Case discussed with Dr. Mora. Plan for discharge w/close pulm follow up.
[2019-09-06 15:30] LABS: VENOUS PC02 33.9 mmHg (38-52); VENOUS PH 7.47 (7.31-7.41)
[2019-09-06 15:32] LABS: VENOUS PO2 < 49 mmHg (28-48)
[2019-09-06 16:19] LABS: ALBUMIN 4.1 g/dl (3.4-5.0); BILIRUBIN,TOTAL 0.7 mg/dL (0.2-1); BLOOD UREA NITROGEN 28.7 mg/dL (7-18); CALCIUM 9.4 mg/dL (8.5-10.1); CREATININE 1.7 mg/dL (0.55-1.3); N-TERMINAL BNP 47.8 pg/ml (5-125); POTASSIUM 4.2 mmol/L (3.5-5.1); TOT PROT 8.2 g/dl (6.4-8.2)
--- NOTE | 2019-09-07 09:30 | EKG ---
Test Reason : Blood Pressure : / mmHG Vent. Rate : 070 BPM Atrial Rate : 070 BPM P-R Int : 198 ms QRS Dur : 096 ms QT Int : 408 ms P-R-T Axes : 038 -07 009 degrees QTc Int : 440 ms NORMAL SINUS RHYTHM MINIMAL VOLTAGE CRITERIA FOR LVH, MAY BE NORMAL VARIANT BORDERLINE ECG WHEN COMPARED WITH ECG OF 27-AUG-2019 09:58, CRITERIA FOR INFERIOR INFARCT ARE NO LONGER PRESENT Confirmed by Abhishek Dubose MD ([id number]) on 09/07/2019 9:29:53 AM Referred By: Confirmed By:Abhishek Dubose MD
== END 2019-09-06 18:15 | disposition home or self-care (01) ==
LOC: JER 13:44 → SUPCPDRO 13:44 → JER 18:15
DX: R09.02 Hypoxemia (principal); J84.9 Interstitial pulmonary disease, unspecified; I25.10 Atherosclerotic heart disease of native coronary artery without angina pectoris; I11.0 Hypertensive heart disease with heart failure; I50.30 Unspecified diastolic (congestive) heart failure; E78.5 Hyperlipidemia, unspecified; Z99.81 Dependence on supplemental oxygen
CPT/HCPCS: 36415; 71045-TC-FY; 80053; 82550; 82553; 82803; 83880; 84484; 85025; 93005; 93010; 99283-25

== ENCOUNTER 2021-01-12 18:49 | Emergency (ER) | payer OTHER ==
[2021-01-12 19:11] VITALS: TEMP 97.7; BMI 25.7
[2021-01-12 20:02] LABS: BASO % 0.7 % (0-2.0); HEMATOCRIT 47.5 % (35.4-49); LYMPH % 24.7 % (8-40); MCH 31.3 pg (25.7-33.7); MCHC 33.7 g/dl (32.0-35.9); MEAN CELL VOLUME 92.7 fl (80-96); MEAN PLT VOLUME 10.3 fl (7.5-11.1); MONO % 9.2 % (3.8-10.2); NEUT % 63.4 % (42.8-82.8); PLATELET COUNT 170 K/MM3 (134-434); RBC 5.13 M/mm3 (4.00-5.60); WHITE BLOOD COUNT 4.6 K/mm3 (4.0-10.0)
[2021-01-12 20:09] LABS: INR 1.01 (0.83-1.09); PROTHROMBIN TIME (PATIENT) 12.4 SEC (9.7-13.0)
[2021-01-12 20:12] LABS: ACTIVATED PTT 32.6 SECONDS (25.2-36.5)
[2021-01-12 20:23] LABS: CHLORIDE 105 mmol/L (98-107); SODIUM 137 mmol/L (136-145)
[2021-01-12 20:25] LABS: ANION GAP 6 MMOL/L (8-16); CALCIUM 9.3 mg/dL (8.5-10.1); CO2 26 mmol/L (21-32); GLUCOSE,RANDOM 87 mg/dL (74-106)
[2021-01-12 20:26] LABS: ALBUMIN 4.2 g/dl (3.4-5.0); BLOOD UREA NITROGEN 18.4 mg/dL (7-18); MAGNESIUM 2.5 mg/dL (1.8-2.4)
[2021-01-12 20:28] LABS: CREATININE 1.5 mg/dL (0.55-1.3); SGPT/ALT 22 U/L (13-61)
[2021-01-12 20:29] LABS: SGOT/AST 16 U/L (15-37)
[2021-01-12 20:30] LABS: TOT PROT 8.4 g/dl (6.4-8.2)
[2021-01-12 20:31] LABS: ALK PHOS 168 U/L (45-117)
[2021-01-12 21:31] VITALS: BP 160/100; PULSE 89
== END 2021-01-12 21:33 | disposition home or self-care (01) ==
LOC: JER 18:49
DX: R42 Dizziness and giddiness (principal)
CPT/HCPCS: 36415; 71046-TC-FY; 80053; 83735; 84484; 85025; 85610; 85730; 93005; 93010; 99285-25

== ENCOUNTER 2021-02-14 09:31 | Emergency (ER) | payer OTHER ==
[2021-02-15 13:11] LABS: SARS-CoV-2 NAA Not Detected (Not Detected)
== END 2021-02-14 12:17 | disposition home or self-care (01) ==
LOC: JVIRT 09:31
DX: Z20.822 Contact with and (suspected) exposure to COVID-19 (principal)
CPT/HCPCS: C9803; Q3014-GT; U0003; U0005

== ENCOUNTER 2021-11-22 22:18 | Emergency (ER) | payer OTHER ==
[2021-11-22 22:37] VITALS: TEMP 97.8
[2021-11-22] MEDS ORDERED: MAG HYDROX/AL HYDROX/SIMETH 30 ML UNIT-DOSE CUP PO ONE (23:58)
[2021-11-22] MEDS ORDERED: SIMETHICONE 80 MG TAB.CHEW (FP) PO ONE (23:59)
[2021-11-23] MEDS ORDERED: MAG HYDROX/AL HYDROX/SIMETH 30 ML UNIT-DOSE CUP ONE (00:19)
[2021-11-23] MEDS ORDERED: SIMETHICONE 80 MG TAB.CHEW (FP) ONE (00:19)
[2021-11-23 01:58] VITALS: BP 153/112; PULSE 96
== END 2021-11-23 02:06 | disposition home or self-care (01) ==
LOC: JER 22:18
DX: R14.0 Abdominal distension (gaseous) (principal)
CPT/HCPCS: 74018-TC-FY; 99283-25

== ENCOUNTER 2022-10-29 03:57 | Day surgery (SDC) | payer OTHER ==
[2022-10-24 14:16] VITALS: BMI 31.0
[2022-10-29] MEDS ORDERED: MIDAZOLAM HCL 2 MG/2 ML SINGLE DOSE VIAL ONE (07:29)
[2022-10-29] MEDS ORDERED: PROPOFOL 20 ML ONE (07:29)
[2022-10-29] MEDS ORDERED: ceFAZolin SODIUM 1 GM VIAL IVPB ONE (07:56)
[2022-10-29] MEDS ORDERED: ceFAZolin SODIUM 1 GM VIAL ONE (07:57)
[2022-10-29] MEDS ORDERED: DEXAMETHASONE SOD PHOSPHATE 4 MG/1 ML VIAL ONE (08:06)
[2022-10-29] MEDS ORDERED: ONDANSETRON 4 MG/2 ML VIAL ONE (08:06)
[2022-10-29] MEDS ORDERED: BACITRACIN ZINC 15 GM TUBE TOPICAL OINTMENT ONE (08:31)
[2022-10-29] MEDS ORDERED: BACITRACIN ZINC 15 GM TUBE TOPICAL OINTMENT TP ONE (08:33)
[2022-10-29] MEDS ORDERED: oxyCODONE HCL 5 MG TABLET PO PRN (08:36)
[2022-10-29] MEDS ORDERED: ONDANSETRON 4 MG/2 ML VIAL IVPUSH PRN (08:43)
[2022-10-29] MEDS ORDERED: ACETAMINOPHEN 325 MG TABLET (FP) PO PRN (08:43)
[2022-10-29] MEDS ORDERED: DEXTROSE 5%-0.45% SALINE 1,000 ML IV SCH (08:45)
[2022-10-29] MEDS ORDERED: LACTATED RINGERS SOLUTION 1,000 ML IV SCH (08:45)
[2022-10-29] MEDS ORDERED: oxyCODONE HCL 5 MG TABLET ONE (10:30)
[2022-10-29 11:35] VITALS: RESP 20; TEMP 98.8
[2022-10-29 14:56] VITALS: BP 137/87; PULSE 80
== END 2022-10-29 15:48 | disposition home or self-care (01) ==
LOC: JASU-SURG 03:57
PROVIDERS: ATTEND Urology
PROC: 0VBJ0ZZ Excision of Right Epididymis, Open Approach (ICD-10-PCS; 2022-10-29)
PROC: 0VB60ZZ Excision of Right Tunica Vaginalis, Open Approach (ICD-10-PCS; principal; 2022-10-29 07:30)
DX: N43.3 Hydrocele, unspecified (principal); N43.40 Spermatocele of epididymis, unspecified
CPT/HCPCS: 88108; 88302-TC; 88304-TC; 88305-TC; 94760